=== PATIENT | female | born 1985 | race Caucasian/White ===

== ENCOUNTER 2017-01-04 13:48 | Emergency (ER) | payer OTHER ==
[2017-01-04 13:57] VITALS: RESP 18; O2SAT 98
[2017-01-04] MEDS ORDERED: Sodium Chloride 0.9% 1,000 ML IV ONE (14:18)
[2017-01-04] MEDS ORDERED: Sodium Chloride 0.9% 1,000 ML ONE (14:27)
[2017-01-04 14:33] LABS: BASO # 0.1 K/uL (0.0-0.2); EOS # 0.3 K/uL (0.0-0.7); EOS % 3.5 % (0.0-4.0); HEMATOCRIT 39.1 % (34.0-47.0); LYMPH # 1.9 K/uL (1.0-4.3); LYMPH % 21.9 % (20.0-40.0); MEAN CELL VOLUME 85.8 fL (81.0-99.0); MEAN CORPUSCULAR HEMOGLOBIN 28.8 pg (27.0-31.0); MEAN CORPUSCULAR HGB CONC 33.6 g/dL (33.0-37.0); MEAN PLATELET VOLUME 9.4 fL (7.2-11.7); MONO # 0.7 K/uL (0.0-0.8); MONO % 8.3 % (0.0-10.0); WHITE BLOOD COUNT 8.6 K/uL (4.8-10.8)
[2017-01-04 14:41] LABS: ALB/GLOB RATIO 1.4 (1.0-2.1); ALKALINE PHOSPHATASE 62 U/L (38-126); ALT/SGPT 37 U/L (9-52); AST/SGOT 20 U/L (14-36); BILIRUBIN,TOTAL 0.4 mg/dL (0.2-1.3); BLOOD UREA NITROGEN 13 mg/dL (7-17); CALCIUM 9.1 mg/dl (8.6-10.4); CARBON DIOXIDE 23 mmol/L (22-30); CHLORIDE 102 mmol/L (98-107); GFR AFRICAN-AMERICAN > 60; GLUCOSE,RANDOM 93 mg/dL (65-105); POTASSIUM 3.9 mmol/L (3.6-5.2); SODIUM 139 mmol/L (132-148); TOTAL PROTEIN 7.1 g/dL (6.3-8.3)
--- NOTE | 2017-01-04 14:41 | RAD ---
PROCEDURE: CHEST RADIOGRAPH, 1 VIEW HISTORY: Diabetic COMPARISON: None available. FINDINGS: LUNGS: Poor inspiration with low lung volumes, mild crowded bronchovascular markings and suspected minor bibasilar atelectasis. PLEURA: No pneumothorax or pleural fluid seen. CARDIOVASCULAR: Heart size is upper limits of normal/ borderline enlarged though this is likely due to poor inspiration and low lung volumes. OSSEOUS STRUCTURES: No significant abnormalities. VISUALIZED UPPER ABDOMEN: Normal. OTHER FINDINGS: None. IMPRESSION: Poor inspiration with low lung volumes, mild crowded bronchovascular markings and suspected minor bibasilar atelectasis.
[2017-01-04 14:48] LABS: RBC URINE 1 /hpf (0-3); URINE BACTERIA RARE (<OCC); URINE BILIRUBIN NEGATIVE (NEGATIVE); URINE BLOOD NEGATIVE (NEGATIVE); URINE COLOR Yellow (YELLOW); URINE GLUCOSE (UA) NORMAL (Normal); URINE KETONE NEGATIVE (NEGATIVE); URINE LEUKOCYTE ESTERASE NEG Leu/uL (Negative); URINE PROTEIN NEGATIVE (NEGATIVE); URINE UROBILINOGEN NORMAL mg/dL (0.2-1.0); WBC URINE < 1 /hpf (0-5)
--- NOTE | 2017-01-04 15:17 | C.PDOC ---
History Of Present Illness Patient is a 31 y/o female, with a Hx of DM, who presents to the ED from work with complaints of feeling weird, anxious, and dizzy. Patient admits to taking Metformin 500mg PO believing it would help reduce her "presumed" elevated glucose. Patient stopped taking Metformin for "months" per PMD who advised all labs were within normal limits. Patient denies any significant weight gain or loss; denies having FS machine at home. No polyuria/polydypsia. Time Seen by Provider: 01/04/17 14:18 Chief Complaint (Nursing): Medical Clearance History Per: Patient History/Exam Limitations: no limitations Onset/Duration Of Symptoms: Hrs Current Symptoms Are (Timing): Still Present Recent travel outside of the [place]: No Past Medical History Reviewed: Historical Data, Nursing Documentation, Vital Signs Vital Signs: Last Vital Signs Temp 98.7 F 01/04/17 16:02 Pulse 83 01/04/17 16:02 Resp 18 01/04/17 16:02 BP 155/98 H 01/04/17 16:02 Pulse Ox 98 01/04/17 16:02 - Medical History PMH: Diabetes, HTN Other Surgeries: . - [facility] Procedures ARTIF RUPT MEMBRANES NEC (10/06/13) MONITORING NOS (10/06/13) LOW CERVICAL (10/06/13) Family History: States: Unknown Family Hx - Social History Hx Alcohol Use: Yes Hx Substance Use: No - Immunization History Hx Tetanus Toxoid Vaccination: No Hx Influenza Vaccination: No Hx Pneumococcal Vaccination: No Review Of Systems Constitutional: Negative for: Fever, Chills Cardiovascular: Negative for: Chest Pain Respiratory: Negative for: Shortness of Breath Gastrointestinal: Negative for: Nausea, Vomiting Neurological: Positive for: Dizziness Psych: Positive for: Anxiety Physical Exam - Physical Exam Appears: Well, Non-toxic, No Acute Distress Skin: Normal Color, Warm, Dry Head: Atraumatic, Normacephalic Oral Mucosa: Moist Chest: Symmetrical Cardiovascular: Rhythm Regular, No Murmur Respiratory: Normal Breath Sounds, No Rales, No Rhonchi, No Wheezing Gastrointestinal/Abdominal: Soft, No Tenderness Neurological/Psych: Oriented x3, Normal Speech, Normal Cognition ED Course And Treatment - Laboratory Results Result Diagrams: 01/04/17 14:27 01/04/17 14:27 Lab Interpretation: Normal (ua neg) Urine POC: Negative ECG: Interpreted By Me ECG Rhythm: Sinus Rhythm ECG Interpretation: Normal Rate From EC O2 Sat by Pulse Oximetry: 98 Pulse Ox Interpretation: Normal Reevaluation Time: 15:38 Reassessment Condition: Improved (remains asymptomatic) Medical Decision Making Medical Decision Making: Plan: EKG and blood work ordered. IV fluids administered. taking AM DM meds NPO which may cause this kind of reaction BS's always wnl here Educated to take meds with food Disposition Doctor Will See Patient In The: Office Counseled Patient/Family Regarding: Studies Performed, Diagnosis - Disposition Referrals: Jenise Stubbs MD [Staff Provider] - Disposition: HOME/ ROUTINE Disposition Time: 15:39 Condition: GOOD Additional Instructions: Debe Checkar soler glucosa en la manana ANTES del desayuno, y ANTES de la [employer] Apunta los en soler librito Siempre andrews belen medicamentos de diabetes CON comida Sigue con La Dra Stubbs en < 1 mes. Prescriptions: Glucose Meter [Blood Glucose Monitoring System] 1 dev XX PRN PRN #1 dev PRN Reason: diabetes Instructions: Diabetes Mellitus Type 2 in Adults (ED) Forms: [employer] (Mongolian) Print Language: BELARUSIAN - Clinical Impression Clinical Impression: Dizziness, Medication adverse effect, Diabetes - Scribe Statement The provider has reviewed the documentation as recorded by the Scribe Gisella Lynn All medical record entries made by the Scribe were at my direction and personally dictated by me. I have reviewed the chart and agree that the record accurately reflects my personal performance of the history, physical exam, medical decision making, and the department course for this patient. I have also personally directed, reviewed, and agree with the discharge instructions and disposition.
[2017-01-04 16:03] VITALS: BP 155/98; PULSE 83; TEMP 98.7
--- NOTE | 2017-01-05 15:55 | CARD ---
APPROVED REPORT EKG Measurement Heart [id number] <Conclusion> Normal sinus rhythm Normal ECG
== END 2017-01-04 16:03 | disposition home or self-care (01) ==
LOC: C.ER 13:48
DX: R42 Dizziness and giddiness (principal); T38.3X5A Adverse effect of insulin and oral hypoglycemic [antidiabetic] drugs, initial encounter; E11.9 Type 2 diabetes mellitus without complications; Z79.84 Long term (current) use of oral hypoglycemic drugs
CPT/HCPCS: 71010; 80053; 80324; 80345; 80346; 80349; 80353; 80358; 80361; 81001; 82009; 83036; 83992; 84703; 85025; 93005; 96360; 99285; J7040

== ENCOUNTER 2017-02-17 19:44 | Emergency (ER) | payer OTHER ==
[2017-02-17] MEDS ORDERED: Sodium Chloride 0.9% 1,000 ML IV ONE (20:13)
[2017-02-17] MEDS ORDERED: Sodium Chloride 0.9% 1,000 ML ONE (20:20)
--- NOTE | 2017-02-17 20:45 | C.PDOC ---
History Of Present Illness 31 year old female with a Hx of HTN and DM presents to the ER for a complaint of weakness and lightheadedness. Patient states she checked her blood pressure earlier today and noticed it was in the 170s/90s. Patient went to her PMD who ( as per patient) gave her 6 tablets of Clonidine 0.2 mg. Patient states she went home and to fell weak, lightheaded and had a headache. 911 was called, and EMS found her BP to be 90 systolic. Patient denies chest pain, SOB, palpitations, sensory changes, extremity weakness, slurred speech, visual changes, gait changes. Time Seen by Provider: 02/17/17 20:12 Chief Complaint (Nursing): Dizziness/Lightheaded History Per: Patient History/Exam Limitations: no limitations Onset/Duration Of Symptoms: Hrs Current Symptoms Are (Timing): Still Present Associated Symptoms Preceding Syncopal Episode: Lightheadedness, Other (Headache , Weakness) Seizure Or Post-ictal Symptoms: None Possible Causative Factor(s): New Medications (Clonidine) Fall Associated With With Symptoms: No Recent travel outside of the [place]: No - Symptoms Of CVA Associated Symptoms: denies: Impaired Speech, Seizure Activity, New Vision Deficit(Left), New Vision Deficit(Right), Decreased Ability To Walk, New Confusion Recent Head Trauma: No Past Medical History Reviewed: Historical Data, Nursing Documentation, Vital Signs Vital Signs: Last Vital Signs Temp 97.8 F 02/17/17 23:18 Pulse 65 02/17/17 23:18 Resp 17 02/17/17 23:18 BP 127/64 02/17/17 23:18 Pulse Ox 98 02/17/17 23:22 - Medical History PMH: Diabetes, HTN - [facility] Procedures ARTIF RUPT MEMBRANES NEC (10/06/13) MONITORING NOS (10/06/13) LOW CERVICAL (10/06/13) Family History: States: No Known Family Hx - Social History Hx Alcohol Use: Yes Hx Substance Use: No - Immunization History Hx Tetanus Toxoid Vaccination: No Hx Influenza Vaccination: No Hx Pneumococcal Vaccination: No Review Of Systems Except As Marked, All Systems Reviewed And Found Negative. Constitutional: Positive for: Weakness Cardiovascular: Positive for: Light Headedness. Negative for: Chest Pain, Palpitations Respiratory: Negative for: Shortness of Breath Neurological: Positive for: Headache. Negative for: Weakness, Numbness, Confusion, Seizures, Altered Mental Status, Dizziness Physical Exam - Physical Exam Appears: Well, Non-toxic, Other (Mildly uncomfortable) Skin: Normal Color, Warm, Dry Head: Normacephalic Eye(s): bilateral: Normal Inspection Oral Mucosa: Moist Neck: Supple Chest: Symmetrical, No Tenderness Cardiovascular: Rhythm Regular Respiratory: Normal Breath Sounds, No Rales, No Rhonchi, No Wheezing Gastrointestinal/Abdominal: Normal Exam, Bowel Sounds, Soft, No Tenderness Extremity: Normal ROM Neurological/Psych: Oriented x3, Normal Speech, Normal Cognition, Normal Cranial Nerves, No Cerebellar Signs, Normal Motor, Normal Sensation Gait: Steady ED Course And Treatment - Laboratory Results Result Diagrams: 02/17/17 20:40 02/17/17 20:40 ECG: Interpreted By Me, Viewed By Me (sinus bradycardia 59 bpm, normal axis, no acute ST/T wave changes) ECG Interpretation: Normal O2 Sat by Pulse Oximetry: 98 (Room air) Pulse Ox Interpretation: Normal Progress Note: Blood work, UA, Upreg, EKG ordered and reviewed. Patient given IV NS bolus and observed in ED. Reevaluation Time: 23:30 Reassessment Condition: Improved (On reassessment, patient is resting comfortably and states she feels much better. Blood pressure has been stable for 3 hours, and labs are unremarkable. Patient is well appearing and comfortable being discharged home. She was instructed to take only one tab of Clonidine daily starting tomorrow, and to follow up with PMD in 1-2 days. She understands she should return to ED if symptoms worsen.) Disposition Counseled Patient/Family Regarding: Studies Performed, Diagnosis, Need For Followup - Disposition Referrals: [facility] at [facility] [Outside] Disposition: HOME/ ROUTINE Disposition Time: 23:30 Condition: STABLE Additional Instructions: SEGUIMIENTO CON ZEPEDA MDICO EN 1-2 AGUILLON USE ZEPEDA MEDICAMENTO DIARIAMENTE, LASHAY PLDORA DIARIA SOLAMENTE VUELVA A LA JANINA DE EMERGENCIA SI NICK SNTOMAS REGRESA Forms: [facility] (Lao), General Discharge Instructions Print Language: HONG KONGER - POA Present On Arrival: None - Clinical Impression Clinical Impression: Medication side effect - Scribe Statement The provider has reviewed the documentation as recorded by the Scribe Juan Lu All medical record entries made by the Scribe were at my direction and personally dictated by me. I have reviewed the chart and agree that the record accurately reflects my personal performance of the history, physical exam, medical decision making, and the department course for this patient. I have also personally directed, reviewed, and agree with the discharge instructions and disposition.
[2017-02-17 20:47] LABS: BASO # 0.1 K/uL (0.0-0.2); BASO % 0.9 % (0.0-2.0); EOS # 0.6 K/uL (0.0-0.7); EOS % 5.1 % (0.0-4.0); HEMATOCRIT 39.3 % (34.0-47.0); LYMPH # 3.9 K/uL (1.0-4.3); LYMPH % 31.2 % (20.0-40.0); MEAN CELL VOLUME 87.1 fL (81.0-99.0); MEAN CORPUSCULAR HEMOGLOBIN 28.7 pg (27.0-31.0); MEAN PLATELET VOLUME 10.1 fL (7.2-11.7); MONO # 0.8 K/uL (0.0-0.8); MONO % 6.5 % (0.0-10.0); NRBC % 0.1 % (0.0-2.0); RED CELL DISTRIBUTION WIDTH 12.9 % (11.5-14.5); WHITE BLOOD COUNT 12.4 K/uL (4.8-10.8)
[2017-02-17 21:07] LABS: CHLORIDE 99 mmol/L (98-107); POTASSIUM 4.3 mmol/L (3.6-5.2); SODIUM 133 mmol/L (132-148)
[2017-02-17 21:09] LABS: BILIRUBIN,TOTAL 0.7 mg/dL (0.2-1.3); GFR AFRICAN-AMERICAN > 60
[2017-02-17 21:10] LABS: ALB/GLOB RATIO 1.6 (1.0-2.1); ALKALINE PHOSPHATASE 58 U/L (38-126); ALT/SGPT 46 U/L (9-52); AST/SGOT 30 U/L (14-36); BLOOD UREA NITROGEN 14 mg/dL (7-17); CALCIUM 8.4 mg/dl (8.6-10.4); CARBON DIOXIDE 23 mmol/L (22-30); GLUCOSE,RANDOM 97 mg/dL (65-105); TOTAL PROTEIN 6.9 g/dL (6.3-8.3)
[2017-02-17 22:24] LABS: RBC URINE 1 /hpf (0-3); URINE BACTERIA RARE (<OCC); URINE BILIRUBIN NEGATIVE (NEGATIVE); URINE BLOOD NEGATIVE (NEGATIVE); URINE COLOR Straw (YELLOW); URINE GLUCOSE (UA) NORMAL (Normal); URINE KETONE NEGATIVE (NEGATIVE); URINE LEUKOCYTE ESTERASE NEG Leu/uL (Negative); URINE PROTEIN NEGATIVE (NEGATIVE); URINE UROBILINOGEN NORMAL mg/dL (0.2-1.0); WBC URINE < 1 /hpf (0-5)
[2017-02-17 23:23] VITALS: O2SAT 98
[2017-02-17 23:31] VITALS: BP 127/64; PULSE 65; RESP 17; TEMP 97.8
--- NOTE | 2017-02-18 10:14 | RAD ---
HISTORY: weakness COMPARISON: Chest x-ray performed 01/04/17 TECHNIQUE: Chest, one view. FINDINGS: Examination limited by habitus and hypoinflation. LUNGS: Poor inspiration with low lung volumes, mild crowded bronchovascular markings and suspected minor bibasilar atelectasis. Please note that chest x-ray has limited sensitivity for the detection of pulmonary masses. PLEURA: No significant pleural effusion identified. No definite pneumothorax . CARDIOVASCULAR: The cardiomediastinal silhouette appears within normal limits of size. OSSEOUS STRUCTURES: No acute osseous abnormality identified. VISUALIZED UPPER ABDOMEN: Unremarkable. OTHER FINDINGS: None. IMPRESSION: Poor inspiration with low lung volumes, mild crowded bronchovascular markings and suspected minor bibasilar atelectasis.
--- NOTE | 2017-02-19 17:33 | CARD ---
APPROVED REPORT EKG Measurement Heart [id number] <Conclusion> Sinus bradycardia Otherwise normal ECG
== END 2017-02-17 23:34 | disposition home or self-care (01) ==
LOC: C.ER 19:44
DX: R42 Dizziness and giddiness (principal); T46.5X5A Adverse effect of other antihypertensive drugs, initial encounter
CPT/HCPCS: 71010; 80053; 81001; 84703; 85025; 96360; 99285; J7040

== ENCOUNTER 2017-11-15 01:07 | Emergency (ER) | payer OTHER ==
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
[2017-11-15 02:10] LABS: SQUAMOUS EPITHIAL 7 /hpf (0-5); URINE BACTERIA RARE (<OCC); URINE BILIRUBIN NEGATIVE (NEGATIVE); URINE CLARITY Hazy (Clear); URINE COLOR Yellow (YELLOW); URINE GLUCOSE (UA) NORMAL (Normal); URINE LEUKOCYTE ESTERASE NEG Leu/uL (Negative); URINE PROTEIN NEGATIVE (NEGATIVE); URINE UROBILINOGEN NORMAL mg/dL (0.2-1.0)
[2017-11-15 02:11] LABS: URINE BLOOD 1+ (NEGATIVE)
[2017-11-15 02:59] VITALS: BP 123/88; PULSE 84; RESP 16; TEMP 99; O2SAT 97
--- NOTE | 2017-11-15 12:59 | RAD ---
Date of service: 11/15/2017 PROCEDURE: Radiographs of the Lumbar Spine. HISTORY: injury COMPARISON: No prior. FINDINGS: BONES: Normal alignment. No listhesis. No fracture. DISC SPACES: Mild degenerative changes are noted and marginal osteophyte formation seen at the proximal portion of the lumbar spine P OTHER FINDINGS: None. IMPRESSION: No evidence of acute fracture or subluxation.
--- NOTE | 2017-11-15 14:45 | RAD ---
Date of service: 11/15/2017 PROCEDURE: Cervical Spine Radiographs. HISTORY: Pain. COMPARISON: None. FINDINGS: BONES: Alignment maintained. No fracture. Dens Intact. DISC SPACES: Mild degenerative changes are noted more prominent at C5-C6. SOFT TISSUES: Normal. No prevertebral soft tissue swelling. OTHER FINDINGS: None. IMPRESSION: No evidence of acute fracture. Mild degenerative changes more prominent at C5-C6.
== END 2017-11-15 02:58 | disposition home or self-care (01) ==
LOC: C.ER 01:07
DX: S16.1XXA Strain of muscle, fascia and tendon at neck level, initial encounter (principal); S33.5XXA Sprain of ligaments of lumbar spine, initial encounter; V49.40XA Driver injured in collision with unspecified motor vehicles in traffic accident, initial encounter; Y92.414 Local residential or business street as the place of occurrence of the external cause

== ENCOUNTER 2018-01-19 00:48 | Emergency (ER) | payer OTHER ==
[2018-01-19 01:05] VITALS: BP 123/85; PULSE 72; RESP 18; TEMP 99; O2SAT 98
--- NOTE | 2018-01-19 01:55 | C.PDOC ---
History Of Present Illness 32 y/o female presents to the ED stating she palpated a breast mass 3 days ago. Now today the area became painful to touch. Tried to see her OB but earliest appointment is for next week. Denies any breast discharge, fever, trauma, or family hx of breast CA. Time Seen by Provider: 01/19/18 01:20 Chief Complaint (Nursing): Breast Problem History Per: Patient History/Exam Limitations: no limitations Onset/Duration Of Symptoms: Days Current Symptoms Are (Timing): Still Present Past Medical History Reviewed: Historical Data, Nursing Documentation, Vital Signs Vital Signs: Last Vital Signs Temp 99 F 01/19/18 01:02 Pulse 72 01/19/18 01:02 Resp 18 01/19/18 01:02 BP 123/85 01/19/18 01:02 Pulse Ox 98 01/19/18 01:02 - Medical History PMH: Diabetes, HTN Denies: Chronic Kidney Disease - [facility] Procedures ARTIF RUPT MEMBRANES NEC (10/06/13) MONITORING NOS (10/06/13) LOW CERVICAL (10/06/13) Family History: States: Unknown Family Hx - Social History Hx Alcohol Use: No Hx Substance Use: No - Immunization History Hx Tetanus Toxoid Vaccination: No Hx Influenza Vaccination: No Hx Pneumococcal Vaccination: No Review Of Systems Except As Marked, All Systems Reviewed And Found Negative. Constitutional: Negative for: Fever, Chills Cardiovascular: Negative for: Chest Pain Respiratory: Negative for: Shortness of Breath Skin: Positive for: Other (Left breast lump) Physical Exam - Physical Exam Appears: Non-toxic, No Acute Distress Skin: Normal Color, Warm, Dry Head: Atraumatic, Normacephalic Eye(s): bilateral: Normal Inspection Neck: Other Lymphatic: No Adenopathy, No Axilla Node Tenderness Chest: Other (Palpable mass to the 9-10 oclock position of the left breast, +mobile, minimally tender, no warmth or erythema, no fluctuance, no skin changes; (-) nipple retraction or nipple discharge; right breast with no mass) Cardiovascular: Rhythm Regular Respiratory: Normal Breath Sounds, No Accessory Muscle Use, Other (no respiratory distress) Extremity: Bilateral: Atraumatic, Normal Color And Temperature, Normal ROM Neurological/Psych: Oriented x3, Normal Speech ED Course And Treatment O2 Sat by Pulse Oximetry: 98 (RA) Pulse Ox Interpretation: Normal Progress Note: Patient is stable for discharge home. Advised to follow up with PMD for mammogram. Return precautions discussed in detail. Disposition Counseled Patient/Family Regarding: Diagnosis, Need For Followup, Rx Given - Disposition Referrals: [facility] [Outside] [facility] [Outside] Disposition: HOME/ ROUTINE Disposition Time: 01:53 Condition: STABLE Additional Instructions: Please see your Supervisor [employer] or primary doctor for Mammogram referral Take motrin or advil as needed for pain Return to ER if swelling, redness, draining or worse Instructions: Common Breast Problems Print Language: KOSOVAN - Clinical Impression Clinical Impression: Breast mass, left - PA / COMPUTING CONSULTANT / Resident Statement MD/DO has reviewed & agrees with the documentation as recorded. - Scribe Statement The provider has reviewed the documentation as recorded by the Scribe (Lilly Paez) All medical record entries made by the Scribe were at my direction and personally dictated by me. I have reviewed the chart and agree that the record accurately reflects my personal performance of the history, physical exam, medical decision making, and the department course for this patient. I have also personally directed, reviewed, and agree with the discharge instructions and disposition.
== END 2018-01-19 02:02 | disposition home or self-care (01) ==
LOC: C.ER 00:48
DX: N63.20 Unspecified lump in the left breast, unspecified quadrant (principal); E11.9 Type 2 diabetes mellitus without complications; I10 Essential (primary) hypertension